=== PATIENT | male | born 1955 | race American Indian/Alaskan Native ===

== ENCOUNTER 2022-05-27 06:24 | Emergency (ER) | payer SELFPAY ==
[2022-05-27] MEDS ORDERED: predniSONE 20 MG TAB PO ONE (11:10)
[2022-05-27] MEDS ORDERED: HYDROcodone/ACETAMINOPHEN 5-325 MG TAB PO ONE (11:11)
--- NOTE | 2022-05-27 11:17 | Emergency Department Report ---
- General Chief complaint: Eye Problems Stated complaint: EYE PROBLEM Time Seen by Provider: 05/27/22 10:59 Source: patient Mode of arrival: Ambulatory Limitations: No Limitations - History of Present Illness Initial comments: 66-year-old black male presents to the emergency department for evaluation of rash to right side of face close to the eye. He states that he noticed a rash 2 days ago and since then has gotten progressively worse and started to hurt. He states that pain is 6 out of 10. He denies any vision changes. 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 MD complaint: rash -: Gradual, days(s) (2) Location: face Severity scale (0 -10): 6 Quality: burning Consistency: constant Associated symptoms: denies other symptoms Treatments Prior to Arrival: none - Related Data Previous Rx's Medication Instructions Recorded Last Taken Type Acetaminophen/Codeine [Tylenol 1 tab PO Q6H PRN #21 tab 05/27/22 Unknown Rx /Codeine # 3 tab] Prednisone [predniSONE 10 mg 10 mg PO .TAPER #1 pack 05/27/22 Unknown Rx (6-Day Pack, 21 Tabs)] Valacyclovir HCl [Valacyclovir] 1,000 mg PO TID #30 tab 05/27/22 Unknown Rx Allergies Allergy/AdvReac Type Severity Reaction Status Date / Time No Known Allergies Allergy Verified 05/27/22 06:31 Abscess Boil HPI - HPI Chief Complaint: Eye Problems Stated Complaint: EYE PROBLEM Time Seen by Provider: 05/27/22 10:59 Home Medications: Previous Rx's Medication Instructions Recorded Last Taken Type Acetaminophen/Codeine [Tylenol 1 tab PO Q6H PRN #21 tab 05/27/22 Unknown Rx /Codeine # 3 tab] Prednisone [predniSONE 10 mg 10 mg PO .TAPER #1 pack 05/27/22 Unknown Rx (6-Day Pack, 21 Tabs)] Valacyclovir HCl [Valacyclovir] 1,000 mg PO TID #30 tab 05/27/22 Unknown Rx Allergies/Adverse Reactions: Allergies Allergy/AdvReac Type Severity Reaction Status Date / Time No Known Allergies Allergy Verified 05/27/22 06:31 ED Review of Systems ROS: Stated complaint: EYE PROBLEM Other details as noted in HPI Comment: All other systems reviewed and negative Constitutional: denies: chills, fever Eyes: denies: eye pain, eye discharge, vision change ENT: ear pain. denies: dental pain Respiratory: denies: shortness of breath Cardiovascular: denies: chest pain, palpitations Gastrointestinal: denies: abdominal pain, nausea, vomiting Musculoskeletal: denies: back pain Skin: rash Neurological: denies: headache, weakness ED Past Medical Hx - Medications Home Medications: Home Medications Medication Instructions Recorded Confirmed Last Taken Type Acetaminophen/Codeine [Tylenol 1 tab PO Q6H PRN #21 tab 05/27/22 Unknown Rx /Codeine # 3 tab] Prednisone [predniSONE 10 mg 10 mg PO .TAPER #1 pack 05/27/22 Unknown Rx (6-Day Pack, 21 Tabs)] Valacyclovir HCl [Valacyclovir] 1,000 mg PO TID #30 tab 05/27/22 Unknown Rx ED Physical Exam - General Limitations: No Limitations General appearance: alert, in no apparent distress - Head Head exam: Present: atraumatic, normocephalic - Expanded Head Exam Expanded 1 - Diffuse vesicles noted 2 - Diffuse vesicles noted - Eye Eye exam: Present: normal appearance, PERRL, EOMI, periorbital tenderness. Absent: scleral icterus, conjunctival injection, periorbital swelling - Expanded Eye Exam Expanded Eyelids: Normal Inspection: Right Pupils: Regular, Round: Bilateral, Reactive: Bilateral Sclera/Conjunctival: Normal Inspection: Bilateral - Neck Neck exam: Present: normal inspection. Absent: tenderness, lymphadenopathy - Respiratory Respiratory exam: Present: normal lung sounds bilaterally. Absent: respiratory distress, wheezes, rales, rhonchi, stridor, chest wall tenderness - Cardiovascular Cardiovascular Exam: Present: regular rate, normal heart sounds - GI/Abdominal GI/Abdominal exam: Present: soft, normal bowel sounds. Absent: distended, tenderness, guarding, rebound, rigid - Extremities Exam Extremities exam: Present: normal inspection, normal capillary refill. Absent: pedal edema, joint swelling, calf tenderness - Back Exam Back exam: Present: normal inspection. Absent: CVA tenderness (R), CVA tenderness (L), vertebral tenderness - Neurological Exam Neurological exam: Present: alert, oriented X3, normal gait - Psychiatric Psychiatric exam: Present: normal affect, normal mood - Skin Skin exam: Present: warm, dry, intact, normal color, rash ED Course Vital Signs 05/27/22 05/27/22 06:28 11:50 Temperature 98.9 F 97.9 F Pulse Rate 95 H 88 Respiratory 18 16 Rate Blood Pressure 129/66 Blood Pressure 134/78 [Right] O2 Sat by Pulse 99 100 Oximetry ED Medical Decision Making - Medical Decision Making 66-year-old black male presents to the emergency department for evaluation of rash to right side of face close to the eye. He states that he noticed a rash 2 days ago and since then has gotten progressively worse and started to hurt. He states that pain is 6 out of 10. He denies any vision changes. 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 Exam consistent with shingles of forehead with few on the scalp area. Symptoms have not gone into the eye but are close to the eye. Given the fact that he has only had symptoms for 2 days, he will be started on valacyclovir along with prednisone with Tylenol 3 to use for pain. He is advised to take medication as prescribed but if he starts to have any vision changes blurred vision photophobia he is advised to follow-up in the ED immediately. He is advised to follow-up with his Ortho target aircraft technician tomorrow for further evaluation and management. He verbalizes understanding of and agreement with plan of care. Critical care attestation.: If time is entered above; I have spent that time in minutes in the direct care of this critically ill patient, excluding procedure time. ED Disposition Clinical Impression: Shingles Qualifiers: Herpes zoster complications: without complications Qualified Code(s): B02.9 - Zoster without complications Disposition: HOME / SELF CARE / HOMELESS Is pt being admited?: No Does the pt Need Aspirin: No Condition: Stable Instructions: Shingles, [id number] Additional Instructions: Take medications as prescribed. Follow-up with your doctor on Monday for further evaluation and management. If your symptoms get worse before Monday, follow-up in the emergency department. You should go to an emergency department that has an eye doctor wagon person which is not here. Prescriptions: Prednisone [predniSONE 10 mg (6-Day Pack, 21 Tabs)] 10 mg PO .TAPER #1 pack Acetaminophen/Codeine [Tylenol /Codeine # 3 tab] 1 tab PO Q6H PRN #21 tab PRN Reason: Pain , Severe (7-10) Valacyclovir HCl [Valacyclovir] 1,000 mg PO TID #30 tab Referrals: BRIANA VITAL MD [Staff Physician] - 3-5 Days Time of Disposition: 11:17
[2022-05-27] MEDS ORDERED: valACYclovir 500 MG TAB PO ONE (12:00)
[2022-05-27 12:05] VITALS: BP 134/78
== END 2022-05-27 12:30 | disposition home or self-care (01) ==
LOC: ED 06:24
DX: B02.9 Zoster without complications (principal); Z79.899 Other long term (current) drug therapy
CPT/HCPCS: 99282